=== PATIENT | female | born 1975 | race Caucasian/White ===

== ENCOUNTER 2017-03-15 18:20 | Emergency (ER) | payer OTHER ==
[~2017-03-15] VITALS: Ht 162.6 cm; Wt 90.7 kg
[2017-03-15 22:06] VITALS: BP 126/86
== END 2017-03-15 22:06 | disposition home or self-care (01) ==
LOC: ED 18:20
DX: J02.9 Acute pharyngitis, unspecified (principal)
CPT/HCPCS: J1100; J1885